=== PATIENT | male | born 1970 | race Caucasian/White ===

== ENCOUNTER 2017-05-07 02:47 | Emergency (ER) | payer SELFPAY ==
[~2017-05-07] VITALS: Ht 182.9 cm; Wt 109.0 kg
[2017-05-07] MEDS ORDERED: HALOPERIDOL LACTATE 5 MG/ML VIAL IM ONE (03:15)
[2017-05-07] MEDS ORDERED: SODIUM CHLORIDE 0.9% 1,000 ML IV ONE (03:15)
[2017-05-07 06:09] VITALS: BP 127/90
== END 2017-05-07 07:17 | disposition home or self-care (01) ==
LOC: EMS 02:49
DX: F10.229 Alcohol dependence with intoxication, unspecified (principal)
CPT/HCPCS: 99283